=== PATIENT | male | born 1940 | race Two or more races ===

== ENCOUNTER 2024-03-13 13:30 | Outpatient (CLI) | payer OTHER | END 2024-03-13 13:37 | disposition home or self-care (01) | LOC: RAD 13:30 | PROVIDERS: ATTEND Emergency Medicine | DX: M21.752 Unequal limb length (acquired), left femur (principal); M16.12 Unilateral primary osteoarthritis, left hip ==

== ENCOUNTER → 2024-11-07 07:45 | Outpatient (CLI) | payer OTHER | END | disposition home or self-care (01) | LOC: NUCLEAR 07:00 | DX: C25.9 Malignant neoplasm of pancreas, unspecified (principal) | CPT/HCPCS: 78815; A9552 ==